=== PATIENT | female | born 1965 | race Caucasian/White ===

== ENCOUNTER 2022-05-01 09:08 | Day surgery (SDC) | payer OTHER, BC ==
[2022-05-01] MEDS ORDERED: Lactated Ringers 1,000 ML IV SCH (09:15)
[2022-05-01] MEDS ORDERED: Nozin Nasal Sanitizer NASBOTH ONE (09:15)
[2022-05-01 09:53] LABS: ESTIMATED GFR 106 mL/min (>60)
[2022-05-01] MEDS ORDERED: fentaNYL 100 MCG/2 ML SDV ONE (10:22)
[2022-05-01] MEDS ORDERED: Midazolam 1 MG/ML 2 ML SDV ONE ×2 (10:22→13:53)
[2022-05-01] MEDS ORDERED: Propofol 200 MG/20 ML SDV ONE ×2 (10:22→14:11)
[2022-05-01] MEDS ORDERED: Bupivacaine 0.5% 50 ML MDV ONE (13:14)
[2022-05-01] MEDS ORDERED: Sodium Chloride 0.9% 10 ML ONE (14:09)
[2022-05-01] MEDS ORDERED: ceFAZolin 1 GM Vial ONE ×2 (14:09)
[2022-05-01] MEDS ORDERED: Lactated Ringers 1,000 ML ONE (14:35)
[2022-05-01] MEDS ORDERED: Acetaminophen/HYDROcodone 325-5 MG Tab PO ONE (16:00)
== END 2022-05-01 16:27 | disposition home or self-care (01) ==
LOC: JP.SDS 09:08
PROVIDERS: ATTEND Specialist
DX: M75.111 Incomplete rotator cuff tear or rupture of right shoulder, not specified as traumatic (principal); M25.811 Other specified joint disorders, right shoulder; E66.9 Obesity, unspecified; Z79.899 Other long term (current) drug therapy; Z68.34 Body mass index [BMI] 34.0-34.9, adult
CPT/HCPCS: 29807; 29822; 36415; 80053; 85027; A9270; C1713; J0690; J2250; J2704; J3010; J3490; J7120

== ENCOUNTER 2022-09-20 08:50 | Day surgery (SDC) | payer OTHER, BC ==
[~2022-09-20 08:50] MED LIST: Bupivacaine 0.5% 30 ML SDV ONE
[2022-09-20] MEDS ORDERED: Nozin Nasal Sanitizer NASBOTH ONE (09:30)
[2022-09-20] MEDS ORDERED: Lactated Ringers 1,000 ML IV SCH (09:30)
[2022-09-20 09:32] LABS: ESTIMATED GFR 101 mL/min (>60)
[2022-09-20] MEDS ORDERED: fentaNYL 100 MCG/2 ML SDV ONE (09:52)
[2022-09-20] MEDS ORDERED: Bupivacaine 0.5% 30 ML SDV ONE (09:53)
[2022-09-20] MEDS ORDERED: Propofol 200 MG/20 ML SDV ONE ×3 (09:53→12:02)
[2022-09-20] MEDS ORDERED: Midazolam 1 MG/ML 2 ML SDV ONE (09:53)
[2022-09-20] MEDS ORDERED: ceFAZolin 2 GM in Premix Bag 1 BAG IV ONE (10:00)
== END 2022-09-20 14:00 | disposition home or self-care (01) ==
LOC: JP.SDS 08:50
PROVIDERS: ATTEND Specialist
DX: M75.111 Incomplete rotator cuff tear or rupture of right shoulder, not specified as traumatic (principal); M77.8 Other enthesopathies, not elsewhere classified; E66.9 Obesity, unspecified; F17.200 Nicotine dependence, unspecified, uncomplicated; Z68.33 Body mass index [BMI] 33.0-33.9, adult
CPT/HCPCS: 29827; 36415; 80053; 85025; A9270; C1713; J2250; J2704; J3010; J3490; J7120

== ENCOUNTER 2022-12-13 06:23 | Day surgery (SDC) | payer OTHER, BC ==
[2022-12-13] MEDS ORDERED: Lactated Ringers 1,000 ML IV SCH (06:45)
[2022-12-13] MEDS ORDERED: Propofol 200 MG/20 ML SDV ONE (07:49)
[2022-12-13] MEDS ORDERED: Acetaminophen/HYDROcodone 325-5 MG Tab PO ONE (09:00)
== END 2022-12-13 09:56 | disposition home or self-care (01) ==
LOC: JP.SDS 06:23
PROVIDERS: ATTEND Specialist
DX: M75.01 Adhesive capsulitis of right shoulder (principal); V89.2XXA Person injured in unspecified motor-vehicle accident, traffic, initial encounter
CPT/HCPCS: 23700; A9270; J2704; J7120